=== PATIENT | male | born 1980 | race Two or more races ===

== ENCOUNTER 2019-04-26 23:54 | Emergency (ER) | payer OTHER ==
[~2019-04-26] VITALS: Ht 185.4 cm; Wt 99.8 kg
--- NOTE | 2019-04-27 00:10 | NUR ---
HUEY FROM STREET. AAOX4. NAD NOTED, BREATHING EVEN AND UNLABORED. AMBULATORY. BROUGHT IN FOR SUICIDAL IDEATION PLANS ON HANGING HIMSELF. PT STATES TAHT HE IS PARANOID AND ANXIOUS. PT DENIES HI. PT NOTED TALKING TO HIMSELF AT TIMES. HE ADMITS TO HEARING VOICES, VOICES ARE VERY CONFUSING ACCORDING TO THE PT. TO ER BED 12. STRIPPED OF PERSONAL BELONGINGS AND CLOTHING. SECURITY AT BEDSIDE FOR WANDING. PTS BELONGINGS ARE KEPT INT HTE UTILITY ROOM BY MD OFFICE
--- NOTE | 2019-04-27 00:10 | NUR ---
Note undone in EDM - 04/27/19 at 0031 [address]RA [address] AAOX4. NAD NOTED, BREATHING EVEN AND UNLABORED. AMBULATORY. BROUGHT IN FOR SUICIDAL IDEATION PLANS ON HANGIN HIMSELF. PT DENIES HI. PT NOTED TALKING TO HISELF AT TIME. HE ADMITS TO HEARING VOICES, VOICES ARE VERY CONFUSING ACCORDING TO THE PT. TO ER BED 12. STRIPPED OF PERSONAL BELONGINGS AND CLOTHING. SECURITY AT BEDSIDE FOR WANDING. PTS BELONGINGS ARE KEPT INT E UTILITY ROOM BY MD OFFICE
--- NOTE | 2019-04-27 00:19 | NUR ---
lab at bedside for blood draw. urine specimen also given
[2019-04-27 00:22] LABS: BASOPHILS % (AUTO) 0.3 % (0.0-2.0); HEMATOCRIT 36 % (39-51); HEMOGLOBIN 11.9 g/dL (13.5-17.5); LYMPHOCYTES # (AUTO) 2.3 /CMM (0.8-4.8); LYMPHOCYTES % (AUTO) 24.5 % (20.0-44.0); MEAN CORPUSCULAR HGB CONC 33 g/dl (31.0-36.0); MEAN CORPUSCULAR VOLUME 92 fL (80-96); MONOCYTES # (AUTO) 1.2 /CMM (0.1-1.30); NEUTROPHILS # (AUTO) 5.6 /CMM (1.8-8.9); NEUTROPHILS % (AUTO) 60.2 % (43.0-81.0); PLATELET COUNT (AUTO) 206 /CMM (150-450); RED BLOOD CELL COUNT(AUTO) 3.89 MIL/uL (4.5-6.0); WHITE BLOOD COUNT (AUTO) 9.3 K/uL (4.3-11.0)
--- NOTE | 2019-04-27 00:29 | NUR ---
ONE ON ONE SITTER AT BEDSIDE PART OF SUICIDE PRECAUTION.
[2019-04-27 00:30] LABS: CALCIUM, SERUM 8.6 mg/dL (8.5-10.1); CARBON DIOXIDE 34 mmol/L (21-32); CHLORIDE 108 mmol/L (98-107); GLUCOSE 86 mg/dL (74-106); POTASSIUM 4.3 mmol/L (3.5-5.1); SODIUM SERUM 144 mmol/L (136-145); UREA NITROGEN, BLOOD 10 mg/dL (7-18)
[2019-04-27 00:35] LABS: APPEARANCE,URINE Clear (CLEAR); BILIRUBIN,URINE SMALL (NEGATIVE); BLOOD, URINE Negative Ery/uL (NEGATIVE); COLOR,URINE Yellow (YELLOW); KETONES,URINE 15 (NEGATIVE); LEUKOCYTE ESTERASE ,URINE Negative (NEGATIVE); NITRITE, URINE Negative (NEGATIVE); PROTEIN,URINE Trace mg/dl (NEGATIVE); UGLUCOSE Negative (NEGATIVE); UROBILINOGEN,URINE 0.2 EU/dL (0.2)
[2019-04-27 00:38] LABS: ALANINE AMINOTRANSFERASE 50 U/L (12-78); ALBUMIN 3.2 g/dL (3.4-5.0); ALCOHOL, BLOOD < 3 mg/dL (0-0); ALKALINE PHOSPHATASE 86 U/L (46-116); ASPARTATE AMINOTRANSFERASE 33 U/L (15-37); BILIRUBIN,TOTAL 0.2 mg/dL (0.2-1.0); TOTAL PROTEIN, SERUM 6.9 g/dL (6.4-8.2)
[2019-04-27 00:39] LABS: ACETAMINOPHEN 0 ug/ml (10-30); SALICYLATE 1.9 mg/dL (2.8-20.0)
[2019-04-27 01:02] LABS: BACTERIA,URINE Few /HPF (None Seen); RBC,URINE 0-2 /HPF (0-2); SQUAMOUS EPITHELIAL CELL,UR Rare /HPF (None Seen); WBC,URINE 0-2 /HPF (0-3)
[2019-04-27 01:03] LABS: CALCIUM OXALATE CRYSTALS,UR Moderate /HPF (None Seen)
--- NOTE | 2019-04-27 02:21 | NUR ---
PT IN BED SLEEPING. NAD NOTED AT THIS TIME
--- NOTE | 2019-04-27 03:39 | NUR ---
PT IN BED SLEEPING. PT DOES NOT WANT TO HAVE HIS VS TAKEN AT THIS TIME
--- NOTE | 2019-04-27 04:02 | NUR ---
AV LUNAW AT BEDSIDE FOR EVAL
--- NOTE | 2019-04-27 05:18 | NUR ---
PER INTAKE AT [facility], NO BEDS AVAILABLE UNTIL 0900
--- NOTE | 2019-04-27 06:34 | NUR ---
PT RESTING COMFORTABLY IN BED. VITAL SIGNS STABLE. NO ACUTE DISTRESS NOTED AT THIS TIME. SITTER AT BEDSIDE. WILL CONTINUE TO MONITOR
--- NOTE | 2019-04-27 07:31 | NUR ---
PT ENDORSED TO [facility]
--- NOTE | 2019-04-27 10:10 | NUR ---
PT IS AWAKE. STATES JUST WANT TO GO HOME AND DOES NOT WISH TO GO VOLUNTARY ADMIT FOR PSYCH. DENIES ANY SI AT THIS TIME. HEMANT MADE AWARE.
--- NOTE | 2019-04-27 11:17 | NUR ---
PT WAS REEVALUATED BY DR BROWN. DENIES ANY SUICIDAL IDEATION AND WANTS TO GO HOME. MEDICALLY AND PSYCH CLEARED. D/C HOME IN STABLE CONDITION.
[2019-04-27 11:20] VITALS: BP 138/75
== END 2019-04-27 11:20 | disposition home or self-care (01) ==
LOC: EDBD 23:57 → ER 23:57
DX: R45.851 Suicidal ideations (principal); R44.0 Auditory hallucinations; F12.90 Cannabis use, unspecified, uncomplicated; R51 Headache; R11.2 Nausea with vomiting, unspecified; F41.9 Anxiety disorder, unspecified; F32.9 Major depressive disorder, single episode, unspecified
CPT/HCPCS: 36415; 80048; 80076; 80305; 80307; 80329; 81001; 85025; 99284; G0480; 81000-TC

== ENCOUNTER 2021-09-10 00:07 | Emergency (ER) | payer MEDICAID, OTHER ==
[~2021-09-10] VITALS: Ht 185.4 cm; Wt 93.0 kg
--- NOTE | 2021-09-10 00:26 | NUR ---
pt bibra c/o joint pain 07/20, pt is a/o x3, placed on monitor.
[2021-09-10] MEDS ORDERED: IBUPROFEN 400 MG TABLET ONE (00:38)
[2021-09-10] MEDS ORDERED: HYDROCODONE/APAP 5/325MG TABLET ONE (00:38)
[2021-09-10] MEDS ORDERED: HYDROCODONE/APAP 5/325MG TABLET PO ONE (01:00)
[2021-09-10] MEDS ORDERED: IBUPROFEN 400 MG TABLET PO ONE (01:00)
[2021-09-10] MEDS ORDERED: HYDR-3972 PO (01:52)
[2021-09-10] MEDS ORDERED: IBUP-1957 PO (01:52)
--- NOTE | 2021-09-10 02:30 | NUR ---
Patient discharged to home in stable condition. Written and verbal after care instructions given. Patient verbalizes understanding of instruction. pT ambulatory with a steady gait. Pt refused to sign dc paperwork
[2021-09-10 02:36] VITALS: BP 149/92
== END 2021-09-10 02:36 | disposition home or self-care (01) ==
LOC: ER 00:08
DX: M25.50 Pain in unspecified joint (principal); F41.9 Anxiety disorder, unspecified; F31.9 Bipolar disorder, unspecified; R03.0 Elevated blood-pressure reading, without diagnosis of hypertension; Z20.822 Contact with and (suspected) exposure to COVID-19
CPT/HCPCS: 87426; 99283; C9803; J7030

== ENCOUNTER 2021-10-02 21:44 | Emergency (ER) | payer MEDICAID ==
[~2021-10-02] VITALS: Ht 185.4 cm; Wt 83.9 kg
[~2021-10-02 21:44] MED LIST: HYDR-3972 PO; IBUP-1957 PO
--- NOTE | 2021-10-02 22:36 | NUR ---
[id number] FROM THE STREETS C/O S/I WITH PLAN TO JUMP IN FRONT OF TRAFFIC. PATIENT SEEKING VOLUNTARY ADMISSION TO [facility]. PATIENT ALERT AND ORIENTED X3. AMBULATORY WITH NON LABORED BREATHING. PLACED IN BED 13 BELONGINGS COLLECTED AND IN A GOWN.
[2021-10-02 23:08] LABS: BASOPHILS % (AUTO) 0.3 % (0.0-2.0); EOSINOPHILS % (AUTO) 2.3 % (0.0-6.0); HEMATOCRIT 31 % (39-51); HEMOGLOBIN 10.2 g/dL (13.5-17.5); LYMPHOCYTES # (AUTO) 2.3 K/uL (0.8-4.8); LYMPHOCYTES % (AUTO) 22.5 % (20.0-44.0); MEAN CORPUSCULAR HGB CONC 33 g/dl (31.0-36.0); MEAN CORPUSCULAR VOLUME 92 fL (80-96); MONOCYTES # (AUTO) 1.4 K/uL (0.1-1.30); MONOCYTES % (AUTO) 14.2 % (2.0-12.0); NEUTROPHILS # (AUTO) 6.1 K/uL (1.8-8.9); NEUTROPHILS % (AUTO) 60.7 % (43.0-81.0); PLATELET COUNT (AUTO) 259 K/uL (150-450); RED BLOOD CELL COUNT(AUTO) 3.38 MIL/uL (4.5-6.0); WHITE BLOOD COUNT (AUTO) 10.1 K/uL (4.3-11.0)
[2021-10-02 23:27] LABS: BILIRUBIN,URINE NEGATIVE (NEGATIVE); COLOR,URINE YELLOW (YELLOW); LEUKOCYTE ESTERASE ,URINE NEGATIVE (NEGATIVE); NITRITE, URINE NEGATIVE (NEGATIVE); PH,URINE 6.5 (5.0-8.0); PROTEIN,URINE NEGATIVE (NEGATIVE); UGLUCOSE NEGATIVE (NEGATIVE)
[2021-10-02 23:33] LABS: CALCIUM, SERUM 8.5 mg/dL (8.5-10.1); CARBON DIOXIDE 30 mmol/L (21-32); CHLORIDE 103 mmol/L (98-107); GLUCOSE 99 mg/dL (74-106); POTASSIUM 4.1 mmol/L (3.5-5.1); SODIUM SERUM 137 mmol/L (136-145); UREA NITROGEN, BLOOD 15 mg/dL (7-18)
[2021-10-02 23:36] LABS: ACETAMINOPHEN 4 ug/ml (10-30); ALANINE AMINOTRANSFERASE 19 U/L (12-78); ALBUMIN 2.5 g/dL (3.4-5.0); ALCOHOL, BLOOD < 3 mg/dL (0-0); ALKALINE PHOSPHATASE 91 U/L (46-116); ASPARTATE AMINOTRANSFERASE 22 U/L (15-37); BILIRUBIN,DIRECT 0.1 mg/dL (0.0-0.2); BILIRUBIN,TOTAL 0.1 mg/dL (0.2-1.0); TOTAL PROTEIN, SERUM 7.2 g/dL (6.4-8.2)
[2021-10-02 23:46] LABS: BACTERIA,URINE Rare /HPF (None Seen); RBC,URINE NONE SEEN /HPF (0-2); SQUAMOUS EPITHELIAL CELL,UR Few /HPF (None Seen); WBC,URINE NONE SEEN /HPF (0-3)
--- NOTE | 2021-10-03 02:05 | NUR ---
PATIENT DOES NOT WANT TO GO TO [facility]
--- NOTE | 2021-10-03 02:05 | NUR ---
SPOKE WITH ART, CLINICALS FAX TO [facility] INTAKE
--- NOTE | 2021-10-03 04:28 | NUR ---
ACCEPTED UNDER DR HALL REPORT [phone]
--- NOTE | 2021-10-03 04:35 | NUR ---
[facility] ETA [phone]
--- NOTE | 2021-10-03 05:20 | NUR ---
REPORT GIVEN TO EMS AT BEDSIDE
[2021-10-03 06:08] VITALS: BP 134/72
== END 2021-10-03 05:46 ==
LOC: ER 21:53
DX: R45.851 Suicidal ideations (principal); F41.9 Anxiety disorder, unspecified; F31.9 Bipolar disorder, unspecified; Z20.822 Contact with and (suspected) exposure to COVID-19; Z59.00 Homelessness unspecified; F12.90 Cannabis use, unspecified, uncomplicated
CPT/HCPCS: 36415; 80048; 80076; 80143; 80307; 80320; 81001; 85025; 87426; 99285; C9803; G0480

== ENCOUNTER 2022-01-11 07:35 | Emergency (ER) | payer MEDICAID ==
[~2022-01-11] VITALS: Ht 188 cm; Wt 108.9 kg
--- NOTE | 2022-01-11 07:35 | NUR ---
PT BIB SELF C/O SI "I WANT TO RUN THRU TRAFFIC" REQUESTING VOLUNTARY PSYCH [facility]. PT IS AAOX4, NOT IN RESPIRATORY DISTRESS, V/S STABLE, KEPT RESTED AND COMFORTABLE. WILL CONTINUE TO MONITOR.
[2022-01-11 07:44] VITALS: BP 137/62
--- NOTE | 2022-01-11 07:48 | NUR ---
URINAL GIVEN BUT UNABLE TO PROVIDE URINE SPECIMEN THIS TIME.
[2022-01-11 08:14] LABS: BASOPHILS % (AUTO) 0.3 % (0.0-2.0); EOSINOPHILS % (AUTO) 1.8 % (0.0-6.0); HEMATOCRIT 38 % (39-51); HEMOGLOBIN 12.5 g/dL (13.5-17.5); LYMPHOCYTES # (AUTO) 1.3 K/uL (0.8-4.8); LYMPHOCYTES % (AUTO) 15.6 % (20.0-44.0); MEAN CORPUSCULAR HGB CONC 33 g/dl (31.0-36.0); MEAN CORPUSCULAR VOLUME 87 fL (80-96); MONOCYTES % (AUTO) 12.3 % (2.0-12.0); NEUTROPHILS # (AUTO) 5.6 K/uL (1.8-8.9); PLATELET COUNT (AUTO) 203 K/uL (150-450)
[2022-01-11 08:26] LABS: CALCIUM, SERUM 8.8 mg/dL (8.5-10.1); CARBON DIOXIDE 31 mmol/L (21-32); CHLORIDE 102 mmol/L (98-107); GLUCOSE 103 mg/dL (74-106); SODIUM SERUM 137 mmol/L (136-145); UREA NITROGEN, BLOOD 11 mg/dL (7-18)
[2022-01-11 08:37] LABS: ALANINE AMINOTRANSFERASE 17 U/L (12-78); ALBUMIN 3.5 g/dL (3.4-5.0); ALCOHOL, BLOOD < 3 mg/dL (0-0); ALKALINE PHOSPHATASE 77 U/L (46-116); ASPARTATE AMINOTRANSFERASE 19 U/L (15-37); BILIRUBIN,DIRECT 0.1 mg/dL (0.0-0.2); BILIRUBIN,TOTAL 0.2 mg/dL (0.2-1.0); TOTAL PROTEIN, SERUM 7.3 g/dL (6.4-8.2)
[2022-01-11 08:40] LABS: ACETAMINOPHEN < 0 ug/ml (10-30)
--- NOTE | 2022-01-11 08:48 | NUR ---
COVID SPECIMEN COLLECTED AND SENT TO LAB.
[2022-01-11 11:06] LABS: BILIRUBIN,URINE NEGATIVE (NEGATIVE); COLOR,URINE YELLOW (YELLOW); LEUKOCYTE ESTERASE ,URINE NEGATIVE (NEGATIVE); NITRITE, URINE NEGATIVE (NEGATIVE); PH,URINE 6.5 (5.0-8.0); PROTEIN,URINE NEGATIVE (NEGATIVE); UGLUCOSE NEGATIVE (NEGATIVE); UROBILINOGEN,URINE 0.2 EU/dL (0.2)
--- NOTE | 2022-01-11 19:06 | NUR ---
CALLED [facility] TO FOLLOW UP NEEDS TO BE RE-FAXED
--- NOTE | 2022-01-12 01:59 | NUR ---
PT ACCEPTED AT [facility] UNDER DR MCKNIGHT. NUMBER FOR REPORT: [id number]
--- NOTE | 2022-01-12 02:06 | NUR ---
[facility] ETA 15 MINUTES
--- NOTE | 2022-01-12 02:18 | NUR ---
REPORT GIVEN TO EVANS MARIE FROM [facility] FOR [facility]
--- NOTE | 2022-01-12 02:32 | NUR ---
REPORT GIVEN TO [facility] EMT FOR PT TO TRANSFER TO [facility]. VSS
== END 2022-01-12 02:35 ==
LOC: ER 07:38
DX: R45.851 Suicidal ideations (principal); Z59.00 Homelessness unspecified; R60.0 Localized edema; Z65.3 Problems related to other legal circumstances; F31.9 Bipolar disorder, unspecified; F41.9 Anxiety disorder, unspecified; Z20.822 Contact with and (suspected) exposure to COVID-19
CPT/HCPCS: 36415; 80048; 80076; 80143; 80307; 80320; 81003; 85025; 87426; 99285; C9803; G0480

== ENCOUNTER 2022-01-28 01:13 | Emergency (ER) | payer MEDICAID ==
[~2022-01-28] VITALS: Ht 185.4 cm; Wt 108.9 kg
[2022-01-28 05:55] VITALS: BP 124/72
--- NOTE | 2022-01-28 05:55 | NUR ---
pt here for med clearance for vol psych, si "od on pills", denies hi. pt aaox4, denies sob/cp. pt to bed 18, si precautions observed, cont to monitor
--- NOTE | 2022-01-28 06:03 | NUR ---
urine collected, sent to lab
--- NOTE | 2022-01-28 06:05 | NUR ---
COVID SWAB COLLECTED AND SENT TO LAB
--- NOTE | 2022-01-28 06:28 | NUR ---
[employer] CUTTER AT PT'S BEDSIDE
[2022-01-28 06:36] LABS: BASOPHILS # (AUTO) 0.1 K/uL (0.0-0.2); BASOPHILS % (AUTO) 0.8 % (0.0-2.0); EOSINOPHILS % (AUTO) 1.4 % (0.0-6.0); HEMATOCRIT 37 % (39-51); HEMOGLOBIN 12.6 g/dL (13.5-17.5); LYMPHOCYTES # (AUTO) 2.1 K/uL (0.8-4.8); LYMPHOCYTES % (AUTO) 18.3 % (20.0-44.0); MEAN CORPUSCULAR HGB CONC 34 g/dl (31.0-36.0); MEAN CORPUSCULAR VOLUME 86 fL (80-96); MONOCYTES # (AUTO) 1.6 K/uL (0.1-1.30); MONOCYTES % (AUTO) 13.9 % (2.0-12.0); NEUTROPHILS # (AUTO) 7.4 K/uL (1.8-8.9); NEUTROPHILS % (AUTO) 65.6 % (43.0-81.0); PLATELET COUNT (AUTO) 199 K/uL (150-450); RED BLOOD CELL COUNT(AUTO) 4.34 MIL/uL (4.5-6.0); WHITE BLOOD COUNT (AUTO) 11.4 K/uL (4.3-11.0)
[2022-01-28 06:49] LABS: CALCIUM, SERUM 8.9 mg/dL (8.5-10.1); CARBON DIOXIDE 28 mmol/L (21-32); CHLORIDE 103 mmol/L (98-107); CREATININE 1.4 mg/dL (0.6-1.3); GLUCOSE 77 mg/dL (74-106); POTASSIUM 4.9 mmol/L (3.5-5.1); SODIUM SERUM 138 mmol/L (136-145); UREA NITROGEN, BLOOD 33 mg/dL (7-18)
--- NOTE | 2022-01-28 06:52 | NUR ---
BELONGINGS COLLECTED AND PUT IN LOCKER: 2 YELLOW BACKS & 1 PT BELONGINGS BAG
[2022-01-28 06:55] LABS: BILIRUBIN,URINE NEGATIVE (NEGATIVE); COLOR,URINE YELLOW (YELLOW); LEUKOCYTE ESTERASE ,URINE NEGATIVE (NEGATIVE); NITRITE, URINE NEGATIVE (NEGATIVE); PROTEIN,URINE NEGATIVE (NEGATIVE); UGLUCOSE NEGATIVE (NEGATIVE); UROBILINOGEN,URINE 0.2 EU/dL (0.2)
[2022-01-28 06:56] LABS: ALANINE AMINOTRANSFERASE 18 U/L (12-78); ALBUMIN 3.4 g/dL (3.4-5.0); ALCOHOL, BLOOD < 3 mg/dL (0-0); ALKALINE PHOSPHATASE 107 U/L (46-116); ASPARTATE AMINOTRANSFERASE 19 U/L (15-37); BILIRUBIN,TOTAL 0.1 mg/dL (0.2-1.0); TOTAL PROTEIN, SERUM 7.4 g/dL (6.4-8.2)
[2022-01-28 07:10] LABS: BACTERIA,URINE None seen /HPF (None Seen); RBC,URINE 0-2 /HPF (0-2); SQUAMOUS EPITHELIAL CELL,UR None Seen /HPF (None Seen); URIC ACID CRYSTALS,URINE Moderate /HPF (None Seen); WBC,URINE 0-2 /HPF (0-3)
[2022-01-28 07:18] LABS: ACETAMINOPHEN < 10 ug/ml (10-30)
--- NOTE | 2022-01-28 08:20 | NUR ---
BREAKFAST IS SERVED. THE PATIENT HECTOR FOOD WELL.
--- NOTE | 2022-01-28 10:35 | NUR ---
FAXED CLINICALS TO [facility] [FAX: [phone]].
--- NOTE | 2022-01-28 12:05 | NUR ---
THE PATIENT IS SERVED WITH LUNCH. HECTOR PROVIDED MEAL WELL.
--- NOTE | 2022-01-28 12:18 | NUR ---
PT ACCEPTED TO [facility] UNDER [facility] [phone] THEY WILL HAVE UPHOLSTERY BUNDLER AT 1230
--- NOTE | 2022-01-28 13:08 | NUR ---
PATIENT WENT TO [facility] IN STABLE CONDITION VIA [facility].
== END 2022-01-28 13:11 ==
LOC: ER 01:16
DX: R45.851 Suicidal ideations (principal); Z20.822 Contact with and (suspected) exposure to COVID-19; Z59.00 Homelessness unspecified; F31.9 Bipolar disorder, unspecified; F41.9 Anxiety disorder, unspecified
CPT/HCPCS: 36415; 80048; 80076; 80143; 80307; 80320; 81001; 85025; 87426; 99285; C9803; G0480

== ENCOUNTER 2022-01-29 19:36 | Emergency (ER) | payer MEDICAID ==
[~2022-01-29] VITALS: Ht 177.8 cm; Wt 74.8 kg
--- NOTE | 2022-01-29 20:12 | NUR ---
BIBS FOR S/I WITH PLAN TO OD ON PILLS. SEEKING VOLUNTARY ADMISSION TO [facility]. PATIENT ALERT AND ORIENTED X3. AMBULATORY WITH NON LABORED BREATHING. IN BED 18 AWAITING MD DUMONT.
--- NOTE | 2022-01-29 20:16 | NUR ---
URINE COLLECTED AND SENT TO LAB
--- NOTE | 2022-01-29 20:16 | NUR ---
COVID SWAB DONE AND SENT TO LAB
[2022-01-29 20:26] LABS: BASOPHILS % (AUTO) 0.3 % (0.0-2.0); EOSINOPHILS % (AUTO) 1.7 % (0.0-6.0); HEMATOCRIT 37 % (39-51); HEMOGLOBIN 12.1 g/dL (13.5-17.5); LYMPHOCYTES # (AUTO) 1.9 K/uL (0.8-4.8); LYMPHOCYTES % (AUTO) 18.9 % (20.0-44.0); MEAN CORPUSCULAR HGB CONC 33 g/dl (31.0-36.0); MEAN CORPUSCULAR VOLUME 88 fL (80-96); MONOCYTES # (AUTO) 1.2 K/uL (0.1-1.30); MONOCYTES % (AUTO) 11.7 % (2.0-12.0); NEUTROPHILS # (AUTO) 6.9 K/uL (1.8-8.9); NEUTROPHILS % (AUTO) 67.4 % (43.0-81.0); PLATELET COUNT (AUTO) 205 K/uL (150-450); RED BLOOD CELL COUNT(AUTO) 4.16 MIL/uL (4.5-6.0); WHITE BLOOD COUNT (AUTO) 10.2 K/uL (4.3-11.0)
[2022-01-29 20:33] LABS: BILIRUBIN,URINE NEGATIVE (NEGATIVE); COLOR,URINE YELLOW (YELLOW); LEUKOCYTE ESTERASE ,URINE NEGATIVE (NEGATIVE); NITRITE, URINE NEGATIVE (NEGATIVE); PH,URINE 5.5 (5.0-8.0); PROTEIN,URINE NEGATIVE (NEGATIVE); UGLUCOSE NEGATIVE (NEGATIVE); UROBILINOGEN,URINE 0.2 EU/dL (0.2)
[2022-01-29 20:35] LABS: CALCIUM, SERUM 8.7 mg/dL (8.5-10.1); CREATININE 1.1 mg/dL (0.6-1.3); POTASSIUM 4.1 mmol/L (3.5-5.1)
[2022-01-29 20:41] LABS: ALBUMIN 3.5 g/dL (3.4-5.0); BACTERIA,URINE RARE /HPF (None Seen); BILIRUBIN,DIRECT 0.1 mg/dL (0.0-0.2); BILIRUBIN,TOTAL 0.2 mg/dL (0.2-1.0); MUCUS,URINE Few /LPF (None Seen); SQUAMOUS EPITHELIAL CELL,UR 0-2 /HPF (None Seen); TOTAL PROTEIN, SERUM 7.5 g/dL (6.4-8.2); WBC,URINE 0-2 /HPF (0-3)
--- NOTE | 2022-01-29 22:40 | NUR ---
clinicals faxed to [facility]
[2022-01-30 05:00] VITALS: BP 130/66
--- NOTE | 2022-01-30 05:41 | NUR ---
followed up with [facility]. still awaiting for acceptance
--- NOTE | 2022-01-30 06:59 | NUR ---
PT NO LONGER SI, WANTS TO LEAVE, NO LONGER WANTS A VOL PSYH ADMIT.
== END 2022-01-30 07:12 | disposition home or self-care (01) ==
LOC: ER 19:42
DX: R45.851 Suicidal ideations (principal); F20.9 Schizophrenia, unspecified; Z59.00 Homelessness unspecified; R31.21 Asymptomatic microscopic hematuria; Z72.0 Tobacco use; F31.9 Bipolar disorder, unspecified; F41.9 Anxiety disorder, unspecified; Z20.822 Contact with and (suspected) exposure to COVID-19; D64.9 Anemia, unspecified; F12.90 Cannabis use, unspecified, uncomplicated
CPT/HCPCS: 36415; 80048; 80076; 80143; 80307; 80320; 81001; 85025; 87426; 99285; C9803; G0480